=== PATIENT | female | born 1965 | race Caucasian/White ===

== ENCOUNTER → 2021-03-03 | Outpatient (CLI) | payer SELFPAY ==
[2021-03-03 14:44] LABS: Thyroid Stim Hormone (TSH) 5.91 uIU/mL (0.358-3.74)
== END | disposition home or self-care (01) ==
PROVIDERS: PCP Family Medicine; Referring Provider Family Medicine; Visit Provider Family Medicine
DX: E03.9 Hypothyroidism, unspecified (principal)
CPT/HCPCS: 36415; 84443

== ENCOUNTER 2021-06-01 12:27 | Outpatient (CLI) | payer SELFPAY ==
[2021-06-01 14:19] LABS: Thyroid Stim Hormone (TSH) 2.55 uIU/mL (0.358-3.74)
== END 2021-06-01 23:59 | disposition short-term general hospital (02) ==
PROVIDERS: PCP Family Medicine; Referring Provider Family Medicine; Visit Provider Family Medicine
DX: E03.9 Hypothyroidism, unspecified (principal)
CPT/HCPCS: 36415; 84443

== ENCOUNTER → 2024-04-06 | Outpatient (CLI) | payer SELFPAY ==
--- NOTE | 2024-04-06 12:40 | RAD_ITS ---
EXAM: XR LEFT FOOT COMPLETE, 3 OR MORE VIEWS CLINICAL INDICATION: fall TECHNIQUE: Frontal, lateral and oblique views of the left foot. COMPARISON: No relevant prior studies available. FINDINGS: BONES/JOINTS: Acute nondisplaced fracture involves the proximal base of the fifth metatarsal consistent with a pseudo-Ledezma fracture. No subluxation deformity. SOFT TISSUES: Mild soft tissue swelling of the forefoot. No radiopaque foreign body. RAD/Foot min 3 Views IMPRESSION: Acute pseudo-Ledezma fracture. Electronically Signed: Filiberto Loyd MD at 13:28 EST ,
== END | disposition home or self-care (01) ==
PROVIDERS: PCP Nurse Practitioner Family; Referring Provider Physician Assistant; Visit Provider Physician Assistant
DX: S92.355A Nondisplaced fracture of fifth metatarsal bone, left foot, initial encounter for closed fracture (principal); W19.XXXA Unspecified fall, initial encounter
CPT/HCPCS: 73630